=== PATIENT | male | born 1975 | race Caucasian/White ===

== ENCOUNTER 2020-04-30 12:15 | Observation (INO) ==
[2020-04-30 12:53] LABS: Basophils % 0.5 %; Eosinophils # 0.1 K/mcL (0.0-0.6); Eosinophils % 1.2 %; Hematocrit 43.5 % (37.5-50.1); Hemoglobin 13.3 g/dL (12.9-16.9); Immature Granulocytes % 0.3 % (0-4); Lymphocytes % 15.8 %; Mean Corpuscular HGB Conc 30.6 g/dL (31.6-35.5); Mean Corpuscular Hemoglobin 26.3 pg (28.0-33.3); Mean Corpuscular Volume 86.1 fL (83.0-100.0); Mean Platelet Volume 9.5 fL (9.4-12.4); Monocytes # 0.5 K/mcL (0.0-1.3); Monocytes % 8.1 %; Neutrophils # 4.8 K/mcL (1.6-8.9); Platelet Count 222 K/mcL (140-400); Red Blood Count 5.05 M/mcL (4.19-5.50); Red Cell Distribution Width 13.1 % (11.5-14.5); Segmented Neutrophils % 74.1 %; White Blood Count 6.5 K/mcL (4.3-11.1)
[2020-04-30 13:10] LABS: BUN/Creatinine Ratio 11 (6-26); Blood Urea Nitrogen 12 mg/dL (6-20); Calcium 9.1 mg/dL (8.6-10.3); Carbon Dioxide 24 mEq/L (23-29); Chloride 108 mEq/L (98-107); Glucose 107 mg/dL (70-105); Osmolality,Calculated 286 (280-300); Potassium 3.8 mEq/L (3.5-5.1); Sodium 138 mEq/L (136-145); Troponin I < 0.03 ng/mL (< 0.04); eGFR For African Americans > 60 (> 60); eGFR For Non-African Americans > 60 (> 60)
[2020-04-30] MEDS ORDERED: Metoprolol XL (24 HR) Succ 50 MG TAB.ER.24H PO STA (14:52)
[2020-04-30] MEDS ORDERED: Naloxone 0.4 MG/ML INJ IVP PRN (15:23)
[2020-04-30] MEDS ORDERED: 0.9 % Sodium Chloride 1,000 ML ONE (15:51)
[2020-04-30] MEDS ORDERED: Nitroglycerin 0.4 MG TAB.SUBL SL ONE (15:51)
[2020-04-30] MEDS ORDERED: *HR* Metoprolol 5 MG/5 ML VIAL IVP PRN ×2 (15:54→16:00)
[2020-04-30] MEDS ORDERED: *HR* Metoprolol 5 MG/5 ML VIAL IVP ONE (16:41)
[2020-04-30] MEDS ORDERED: Isovue-370 500 ML BOTTLE IVP ONE ×2 (16:57→18:36)
[2020-04-30] MEDS ORDERED: GI Cocktail 40 ML EACH PO ONE (18:25)
[2020-04-30] MEDS ORDERED: 0.9 % Sodium Chloride 1,000 ML IVC ONE (18:37)
[2020-04-30] MEDS ORDERED: GI Cocktail 40 ML EACH PO STA (18:37)
[2020-04-30 19:28] LABS: Albumin 3.7 g/dL (3.5-5.7); Albumin/Globulin Ratio 1.3 (1.1-2.2); Bilirubin,Direct 0.1 mg/dL (0.0-0.2); Bilirubin,Indirect 0.2 mg/dL (0.0-1.0); Bilirubin,Total 0.3 mg/dL (0.3-1.0); Globulin 2.8 g/dL (2.4-3.5); Total Protein 6.5 g/dL (6.4-8.9)
[2020-04-30 20:04] VITALS: BP 121/84
[2020-05-01] MEDS ORDERED: *HR* Enoxaparin 40 MG/0.4 ML SYRINGE SQ SCH (06:00)
[2020-05-01] MEDS ORDERED: amLODIPine 5 MG TABLET PO SCH (09:00)
[2020-05-01] MEDS ORDERED: Loratadine 10 MG TABLET PO SCH (09:00)
== END 2020-04-30 20:44 | disposition home or self-care (01) ==
LOC: 3BNU 12:15 → EMEROOARM 12:15 → 3BNU 16:35
PROVIDERS: ADMIT Student in an Organized Health Care Education/Training Program; ATTEND Student in an Organized Health Care Education/Training Program